=== PATIENT | female | born 1940 | race Two or more races ===

== ENCOUNTER 2016-06-19 08:37 | Inpatient (IN) | payer MEDICARE, BC ==
[2016-06-19 09:17] VITALS: BP 155/71
[2016-06-19] MEDS ORDERED: Magnesium Hydroxide (MOM) 30 mL UDC PO PRN (11:28)
[2016-06-19] MEDS ORDERED: Maalox 30 mL Cup PO PRN (11:28)
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
[2016-06-19] MEDS ORDERED: CEFDINIR 300 MG PO SCH (21:00)
[2016-06-20] MEDS ORDERED: VENLAFAXINE HCL 150 MG PO SCH (09:00)
[2016-06-20] MEDS ORDERED: LIOTHYRONINE SODIUM 5 MCG PO SCH (09:00)
[2016-06-20] MEDS: LATUDA 40 MG PO SCH ×2 (09:55→10:00)
[2016-06-20] MEDS: Multivitamin Tab PO SCH ×2 (09:55→10:00)
[2016-06-20 14:59] LABS: % BASOPHILS 0.1 % (0.0-2.0); % EOSINOPHILS 0.5 % (0.0-5.0); % LYMPHOCYTES 15.6 % (20.0-50.0); % MONOCYTES 3.4 % (2.0-10.0); % NEUTROPHILS 80.4 % (40.0-80.0); HEMATOCRIT 43.8 % (35.0-45.0); HEMOGLOBIN 14.7 gm/dL (11.7-16.1); MEAN CELL VOLUME 92.3 fl (81-100); MEAN CORPUSCULAR HGB CONC 33.6 pg (28.0-36.0); MEAN PLATELET VOLUME 7.7 fl; PLATELET COUNT 215 Th/cmm (150-400); RED BLOOD COUNT 4.75 Mil/cmm (3.80-5.20); RED CELL DISTRIBUTION WIDTH 13.3 % (11.5-20.0); WHITE BLOOD COUNT 9.8 Th/cmm (4.8-10.8)
[2016-06-20 15:08] LABS: ANION GAP 14.5 (7.0-16.0); BUN - UREA NITROGEN 22 mg/dL (7-25); BUN/CREATININE RATIO 27.5; CALCIUM SERUM 9.5 mg/dL (8.6-10.3); CARBON DIOXIDE 22.5 mEq/L (21.0-31.0); CHLORIDE 107 mEq/L (98-107); CREATININE - SERUM 0.8 mg/dL (0.6-1.2); GLUCOSE 119 mg/dL (70-105); SODIUM SERUM 140 mEq/L (136-145)
--- NOTE | 2016-06-20 15:08 | History & Physical ---
HISTORY OF PRESENT ILLNESS: The patient is a 76-year-old female with long history of hypertension, hypothyroidism, dementia, psychosis, admitted to ____ under Dr. Damon's service. The patient denies any chest pain or shortness of breath. She has very poor appetite. The patient was treated for urinary tract infection. She is off antibiotic. No dysuria or hematuria. PAST MEDICAL HISTORY: Significant for hypertension, hypothyroidism, dementia and bladder dysfunction. PAST SURGICAL HISTORY: No recent surgery. ALLERGIES: None. MEDICATIONS: Follow admission reconciliation. SOCIAL HISTORY: No smoking, alcohol or drug use. FAMILY HISTORY: Noncontributory. REVIEW OF SYSTEMS: RENAL SYSTEM: No history of chronic renal disorder. CARDIOVASCULAR SYSTEM: She has history of hypertension. ENDOCRINE SYSTEM: She has history of hypothyroidism. GASTROINTESTINAL SYSTEM: No upper or lower gastrointestinal bleed. NEUROLOGICAL: She has history of psychosis and dementia. PHYSICAL EXAMINATION: GENERAL: She is awake, alert, mildly confused. VITAL SIGNS: Temperature 98.1, heart rate 74, blood pressure 139/76. HEENT: Normocephalic. Pupils reacting to light and accommodation. Sclerae clear. NECK: Supple. Negative for lymphadenopathy, JVD or bruit. CHEST: Bilaterally normal. No rhonchi or wheezing. HEART: S1, S2 normal. No murmur or gallop. ABDOMEN: Soft. Bowel sounds positive. EXTREMITIES: No edema. BACK: No tenderness. SKIN: Intact. BREASTS, PELVIC AND RECTAL: Done by primary physician ____. NEUROLOGIC: She is awake, alert, mildly confused. No focal motor or sensory deficit. ASSESSMENT: 1. Hypertension. 2. Hypothyroidism. 3. Bladder dysfunction. 4. Dementia. 5. Psychosis. PLAN: The patient admitted to the hospital under Dr. Damon's service. Medical problem to be addressed during hospitalization is psychosis. Medical problems to be addressed at discharge is hypothyroidism and hypertension. The patient is medically stable for activity. Thank you, Dr. Damon for asking me to see your patient. JOB# [id number]
--- NOTE | 2016-06-21 01:13 | Progress Notes ---
Case was discussed with staff of the patient, reviewed records. The patient apparently refused to take her medication today. She is very confused and when I talked to her she first says she would not take her medication and then she said she needs her medication. Then, she said she is waiting on her medications. I advised the staff to bring her medication to take it. She is still unable to process information, make safe plan for self-care. She is unpredictable, impulsive, and continues to have poor insight. Unable to participate in meaningful conversation and make safe plan for self-care. I will start her back on her medication. We will adjust medication as needed. We will work with the patient in group therapy, milieu therapy, and adjust medication as needed. JOB# [id number]
[2016-06-21] MEDS: LATUDA 40 MG PO SCH (09:40)
[2016-06-21] MEDS: Multivitamin Tab PO SCH (09:41)
[2016-06-21 15:11] LABS: % BASOPHILS 0.2 % (0.0-2.0); % EOSINOPHILS 0.7 % (0.0-5.0); % LYMPHOCYTES 19.1 % (20.0-50.0); % MONOCYTES 4.5 % (2.0-10.0); % NEUTROPHILS 75.5 % (40.0-80.0); HEMATOCRIT 43.4 % (35.0-45.0); HEMOGLOBIN 14.6 gm/dL (11.7-16.1); MEAN CELL VOLUME 91.5 fl (81-100); MEAN CORPUSCULAR HEMOGLOBIN 30.7 pg (27.0-31.0); MEAN CORPUSCULAR HGB CONC 33.6 pg (28.0-36.0); MEAN PLATELET VOLUME 7.8 fl; NEUTROPHILE ABSOLUTE 6.3 Th/cmm (1.8-8.0); PLATELET COUNT 219 Th/cmm (150-400); RED BLOOD COUNT 4.74 Mil/cmm (3.80-5.20); RED CELL DISTRIBUTION WIDTH 13.3 % (11.5-20.0); WHITE BLOOD COUNT 8.4 Th/cmm (4.8-10.8)
[2016-06-21 15:51] LABS: ALB/GLOB RATIO 1.5 (1.0-1.8); ALKALINE PHOSPHATASE 76 U/L (34-104); BILIRUBIN,TOTAL 0.5 mg/dL (0.3-1.0); BUN - UREA NITROGEN 27 mg/dL (7-25); CARBON DIOXIDE 24.9 mEq/L (21.0-31.0); CHLORIDE 107 mEq/L (98-107); GLUCOSE 133 mg/dL (70-105); POTASSIUM SERUM 3.9 mEq/L (3.5-5.1); SGOT 13 U/L (13-39); SGPT/ALT 12 U/L (7-52); SODIUM SERUM 141 mEq/L (136-145)
--- NOTE | 2016-06-22 01:52 | Progress Notes ---
Case was discussed with staff of the patient, reviewed records. I left her message she was not available; however, the staff reported that she called me because she wanted the mother on long-acting injection, so at this point, the patient has been agreeable to taking her medication with no side effects; however, she is still confused, demented, easily agitated, and irritable. She refused her medication the day before yesterday and so far, no side effects with the medication, no sedation, and no nausea with no extrapyramidal symptoms. We will try to consider an injectable to the patient and we will continue to work with the patient in group therapy, milieu therapy, and adjust medication as needed. JOB# [id number]
[2016-06-22] MEDS: Multivitamin Tab PO SCH (08:50)
[2016-06-22] MEDS: LATUDA 40 MG PO SCH (08:53)
[2016-06-22] MEDS: LIOTHYRONINE 5 MCG PO SCH ×2 (10:41→16:12)
[2016-06-22] MEDS: Magnesium Hydroxide (MOM) 30 mL UDC PO PRN (17:19)
--- NOTE | 2016-06-23 01:25 | Progress Notes ---
Case was discussed with staff of the patient. The patient apparently refused her medications yesterday, though in the morning when I talked to her yesterday, she agreed to take her medication, she ended up taking them, but in the evening, she refused. When I talked to with the medication nurse today, she said she did take her medication and she is agreeable to taking her medication. She reports she has no reason to not take her medication. Her family wants her on an injectable; however, she is on an antidepressant that you cannot adjust injection. The mood stabilizer cannot be given as an injection. The only medication that needs to be communicating without an injection is lurasidone, the antipsychotic ____ but that needs to be changed because there is no lurasidone available as an injection, so I will be discussing this with her daughter who has power of commonwealth attorney first. I did leave her message yesterday and then we will make changes accordingly and see if she was tried on it before because her daughter is very picky in general about what medication her mother takes, my experience with her in the past. I want her input before I change the medication. We will continue to work with the patient in group therapy, milieu therapy, and adjust the medication as needed. JOB# [id number]
[2016-06-23] MEDS: Multivitamin Tab PO SCH (08:38)
[2016-06-23] MEDS: LATUDA 40 MG PO SCH (08:39)
[2016-06-23] MEDS: LIOTHYRONINE 5 MCG PO SCH ×2 (08:40→17:11)
[2016-06-23 13:39] LABS: URINE BILIRUBIN NEGATIVE (NEGATIVE); URINE BLOOD NEGATIVE (NEGATIVE); URINE COLOR YELLOW; URINE GLUCOSE (UA) NEGATIVE (NEGATIVE); URINE KETONE NEGATIVE (NEGATIVE); URINE PH 5.5; URINE PROTEIN NEGATIVE (NEGATIVE); URINE UROBILINOGEN 0.2 E.U./dL (0.2 - 1.0)
[2016-06-23 13:40] LABS: URINE AMORPHOUS SEDIMENT FEW URATES (NONE SEEN); URINE BACTERIA FEW /hpf (NONE SEEN); URINE CALCIUM OXALATE CRYSTALS FEW /hpf; URINE EPITHELIAL CELLS FEW /lpf (FEW); URINE RBC 0-2 /hpf (0-5)
--- NOTE | 2016-06-24 01:04 | Progress Notes ---
Case discussed with staff of the patient, reviewed records. The patient has been compliant with the medication. She continues to be confused, continues to be unpredictable and impulsive, continues to need redirection, continues to need help with her ADLs. She is incontinent. She uses a diaper, but she is taking her medication at this point. I will see if we need to send her to a rehab facility prior to her going home and so far, no side effects with the medication, no sedation, no nausea. We will continue to work with the patient in group therapy, milieu therapy, adjust the medication as needed. I have tried to call the daughter yesterday and today, left her a message to call me. JOB# [id number]
[2016-06-24] MEDS: LATUDA 40 MG PO SCH (09:25)
[2016-06-24] MEDS: Multivitamin Tab PO SCH (09:25)
[2016-06-24] MEDS: LIOTHYRONINE 5 MCG PO SCH ×2 (09:30→17:58)
--- NOTE | 2016-06-25 07:21 | Progress Notes ---
Case discussed with staff of the patient, reviewed records. The patient seems to be progressively showing some progress. She is taking her medication without prompt. She is easier to redirect, but she is confused, unable to tell me the date, where she is, she forgot that she saw me or ever saw me. She continues to have poor insight. I will be increasing her Latuda to 40 mg a day and so far no side effects, no sedation, no nausea, no extrapyramidal symptoms. As per the covering psychiatrist, medication may need to be adjusted and watch for side effects. 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 Dr. Falk is aware of it. Her CBC is within normal range with low lymphocytes. Chemistry panel showed high BUN, high blood sugar and her TSH is high and Dr. Falk was made aware of it and chemistry panel with high blood sugar. I will be increasing the Latuda to 40 mg a day and we will continue to work with patient in group therapy, milieu therapy, adjust the medication as needed. JOB# [id number]
[2016-06-25] MEDS: LATUDA 40 MG PO SCH (08:46)
[2016-06-25] MEDS: Multivitamin Tab PO SCH (08:46)
[2016-06-25] MEDS: LIOTHYRONINE 5 MCG PO SCH ×2 (08:46→16:50)
--- NOTE | 2016-06-26 08:39 | Progress Notes ---
Dr. Fiore covering Dr. Damon. SUBJECTIVE: The patient was seen and evaluated. The patient's chart reviewed. The patient is a 76-year-old female who was brought in here by another hospital in [facility]. She got into an argument with her caregiver, pulling hair, stated she was afraid to . She was paranoid, feeling that her caregiver wants to harm her by giving her different medications. She stated that she was still having thoughts of harming her caregiver, but unable to state how. Nursing staff reported that the patient being isolative, withdrawing, easily irritable and agitated. On [id number]-[id number] evaluation, the patient is easily isolative, withdrawn, needing a lot of redirection. She reports a lot of anxiety and instability. She denies any side effects of the medication. MENTAL STATUS EXAMINATION: Withdrawn, isolated, poor insight, poor judgment, poor impulse control. Current medications include lorazepam 0.5 mg twice a day, 40 mg, memantine 10 mg by mouth twice a day, venlafaxine 150 mg by mouth daily, and Lamictal 25 mg by mouth twice a day. ASSESSMENT AND PLAN: The patient is a 75-year-old female with history of schizoaffective comorbid dementia with behavioral disturbances and delusions, who is tolerating recent medication adjustments without any side effects. We will continue with primary treatment plan and goals and current medications, assist to adjusting and reaching a steady state without any side effects. Due to the patient's still disorganized thought process, she is unable to formulate a safe plan for after-discharge environment. [facility]# [id number]
[2016-06-26] MEDS: LIOTHYRONINE 5 MCG PO SCH ×2 (08:42→16:26)
[2016-06-26] MEDS: LATUDA 40 MG PO SCH (08:43)
[2016-06-26] MEDS: Multivitamin Tab PO SCH (08:44)
[2016-06-27] MEDS: LIOTHYRONINE 5 MCG PO SCH ×2 (10:16→16:51)
[2016-06-27] MEDS: Multivitamin Tab PO SCH (10:18)
[2016-06-27] MEDS: LATUDA 40 MG PO SCH (10:19)
--- NOTE | 2016-06-27 18:43 | Progress Notes ---
SUBJECTIVE: The patient seen, chart reviewed, discussed with staff. The patient is currently in the hospital on a hold for grave disability brought over from [facility]. The patient is a poor historian, not really able to tell me why she is in the hospital at this time. History of dementia. The patient under the care of Dr. Damon. Dr. Fiore has been seeing this patient over the past few days, noted to be paranoid, feeling that caregiver wanted to harm her. The patient is essentially refusing interview with me, not really talking much. Medications reviewed. Labs were reviewed, still with reports of anxiety, isolation, withdrawn, still needing a lot of redirection prompting for ADLs and appetite and eating. No overt side effects of medications were noted and medications were reviewed. ASSESSMENT: The patient currently in the hospital, argumentative with caregiver, pulling the hair of the caregiver, paranoid, thought that the delivery and installation subcontractor wanted to harm her. Still with symptoms of isolation, not really speaking with me this morning, still upset. PLAN: Medications reviewed. Continue to monitor for side effects. JOB# [id number]
[2016-06-28] MEDS: LIOTHYRONINE 5 MCG PO SCH ×2 (08:30→17:30)
[2016-06-28] MEDS: Multivitamin Tab PO SCH (08:31)
[2016-06-28] MEDS: LATUDA 40 MG PO SCH (08:36)
--- NOTE | 2016-06-28 11:14 | Progress Notes ---
Covering for Dr. Damon. SUBJECTIVE: The patient was seen and evaluated. The patient's chart reviewed. Nursing staff reported that the patient has been isolative, withdrawn in her room, minimally interactive. On [id number] evaluation, the patient is staying in room, melancholic stage. She feels a lot of anxiety, feeling overwhelmed. She denies any side effects to the medications. MENTAL STATUS EXAMINATION: Melancholic, depressed, very distraught, anxious, endorsing suicidal. Poor insight and poor judgment. Poor impulse control. ASSESSMENT AND PLAN: The patient is a 76-year-old female with major depressive disorder and psychotic features with underlying neurocognitive impairment. We will continue with the current medication regimen, which includes Latuda, Namenda, Effexor, and Lamictal. JOB# [id number]
--- NOTE | 2016-06-29 05:22 | Progress Notes ---
Case discussed with staff of patient. Reviewed records. The patient has been taking her medication and continues to isolate herself agitated at times. She continues ____ direction. She continues to be unpredictable, impulsive. She continues to have poor insight. She also is demented and confused. No side effects with the medication, no sedation, no nausea, no extrapyramidal symptoms. I will continue to work the patient in group therapy, milieu therapy, adjust the medication as needed. JOB# [id number]
[2016-06-29] MEDS: LIOTHYRONINE 5 MCG PO SCH ×2 (09:59→17:05)
[2016-06-29] MEDS: LATUDA 40 MG PO SCH (09:59)
[2016-06-29] MEDS: Multivitamin Tab PO SCH (10:00)
--- NOTE | 2016-06-29 19:58 | Progress Notes ---
The case was discussed with staff of the patient, reviewed records. The patient is reportedly staying in bed all day. She continues to isolate herself. Continues to have poor insight. Continues to be unable to make safe plan for self-care. She is demented and confused. Looking disheveled. She is sleeping well and eating well. She is compliant with the medication with no side effects, no sedation, and no nausea. Discussed the care with her daughter. She does not want to go to any rehab facility now. She said she had a bad experience and so far, I did increase her Latuda to 40 mg a day and no side effects with the medication, no extrapyramidal symptoms. We will continue to work with the patient in group therapy, milieu therapy, and adjust medication as needed. JOB# [id number]
[2016-06-30] MEDS: LIOTHYRONINE 5 MCG PO SCH ×3 (10:00→17:10)
[2016-06-30] MEDS: LATUDA 40 MG PO SCH ×2 (10:00→10:18)
[2016-06-30] MEDS: Multivitamin Tab PO SCH ×2 (10:01→10:20)
[2016-06-30] MEDS ORDERED: LATUDA 40 MG PO SCH (13:12)
--- NOTE | 2016-07-01 05:27 | Progress Notes ---
Case was discussed with staff of the patient. The patient today admitted to me that when she first came she was hearing voices. She reported that the voices are fading away. They are not as prominent. She stays in bed most of the time, but she is able to carry on a conversation better. She was not doing that before. She has been compliant with the medication with no side effects, no sedation, and no nausea. I will be increasing the Latuda dose to 60 mg a day to help make sure that the patient does not become psychotic again. When she came, she was on a very small dose of Latuda 20 mg, was not taking her medication, and her daughter wants her to go back home and not to a facility, and so far, no side effects with the medication, no sedation, no nausea, and no extrapyramidal symptoms. We will continue to work with the patient in group therapy, milieu therapy, and adjust the medication as needed. JOB# [id number]
[2016-07-01] MEDS: LIOTHYRONINE 5 MCG PO SCH ×2 (09:47→17:11)
[2016-07-01] MEDS: Multivitamin Tab PO SCH (09:49)
[2016-07-01] MEDS: Magnesium Hydroxide (MOM) 30 mL UDC PO PRN (13:03)
--- NOTE | 2016-07-02 02:21 | Progress Notes ---
Case was discussed with staff of the patient, reviewed records. The patient reported that she has been very sedated on a higher dose of Latuda since yesterday. She feels she is going to fall. She continues to be depressed, isolating herself. Continues to be unpredictable and impulsive. So for the time being, I will go down on Latuda to 60 mg a day and then may be increasing it later and no other side effects besides sedation, no extrapyramidal symptoms, and we will continue to work with the patient in group therapy, milieu therapy, and adjust the medication as needed. JOB# [id number]
[2016-07-02] MEDS: LATUDA 40 MG PO SCH (08:46)
[2016-07-02] MEDS: Multivitamin Tab PO SCH (08:46)
[2016-07-02] MEDS: LIOTHYRONINE 5 MCG PO SCH ×2 (08:47→16:15)
--- NOTE | 2016-07-02 20:46 | Progress Notes ---
SUBJECTIVE: The patient seen, chart reviewed, discussed with staff. The patient continues to be unpredictable, impulsive, labile, depressed, isolative and withdrawn. Complaints that it "too noisy," unclear where she is going to go upon discharge. The patient currently is in the hospital. She was refusing medications, refusing to participate in care. Staff could not care for her. The patient is with supportive family, history of dementia, eating with prompting and sleeping fairly well. ASSESSMENT: The patient remains symptomatic, still depressed, isolative, withdrawn, unpredictable and labile. PLAN: We will continue to monitor and monitor for any undue side effects. Due to the severity of the patient's symptoms, she is not safe for discharge. [facility]# [id number]
[2016-07-03] MEDS: Multivitamin Tab PO SCH (08:24)
[2016-07-03] MEDS: LATUDA 40 MG PO SCH (08:24)
[2016-07-03] MEDS: LIOTHYRONINE 5 MCG PO SCH ×2 (08:32→17:05)
[2016-07-03] MEDS: Magnesium Hydroxide (MOM) 30 mL UDC PO PRN (09:20)
--- NOTE | 2016-07-03 19:08 | Progress Notes ---
SUBJECTIVE: The patient is seen, chart reviewed, discussed with staff. The patient is currently in the hospital, refusing medications, refusing to participate in care and the staff at her previous facility could not care for her. She continues to be impulsive, still labile, isolative, withdrawn, sleeping on exam. She is arousable, but is refusing to speak with me. The patient is with history of dementia, eating with prompting. Sleeping is fairly well. No medication side effects noted. ASSESSMENT: The patient remains symptomatic, depressed, withdrawn, isolative, still labile at times. PLAN: Continue to monitor. Continue to titrate medications. Due to the persistence of the patient's behaviors, she is not safe for a lower level of care. The patient is to follow up with Dr. Damon in the morning. JOB# [id number]
[2016-07-04] MEDS: LATUDA 40 MG PO SCH (09:46)
[2016-07-04] MEDS: Multivitamin Tab PO SCH (09:47)
[2016-07-04] MEDS: LIOTHYRONINE 5 MCG PO SCH ×2 (12:14→16:40)
[2016-07-04] MEDS: Magnesium Hydroxide (MOM) 30 mL UDC PO PRN (21:27)
--- NOTE | 2016-07-05 03:31 | Progress Notes ---
Case was discussed with staff of the patient, reviewed records. The patient continues to isolate herself in bed. She has not been able to take a shower yet and the staff is trying to prompt her to take a shower to improve her status. She is still unable to make safe plan for self-care, isolating herself. She gets sedated on a higher dose of Latuda, so I will hold on doing that giving more time to work and so far, no side effects with the medication, no sedation, no nausea, and no extrapyramidal symptoms. We will continue to work with the patient in group therapy, milieu therapy, and adjust the medication as needed. JOB# [id number]
[2016-07-05] MEDS: Multivitamin Tab PO SCH (08:54)
[2016-07-05] MEDS: LATUDA 40 MG PO SCH (08:54)
[2016-07-05] MEDS: LIOTHYRONINE 5 MCG PO SCH ×2 (08:55→18:13)
--- NOTE | 2016-07-05 23:29 | Progress Notes ---
The patient continues to be depressed, isolating herself, continues to hear voices, unable to make safe plan for her self-care. She continues to have poor hygiene. The staff have to press her many times to have her wash herself. She is unpredictable, impulsive, internally preoccupied, needing redirection. Continues to have poor insight, depressed. I will be increasing her venlafaxine to 225 to help with her depression and so far no side effects with the medication, no sedation, no nausea and no extrapyramidal symptoms. We will continue to work with the patient in group therapy, milieu therapy, adjust the medication as needed. JOB# [id number]
[2016-07-06] MEDS: Multivitamin Tab PO SCH (08:20)
[2016-07-06] MEDS: LATUDA 40 MG PO SCH (08:20)
[2016-07-06] MEDS: LIOTHYRONINE 5 MCG PO SCH ×2 (08:21→17:10)
--- NOTE | 2016-07-07 00:53 | Progress Notes ---
Case was discussed with staff of the patient, reviewed records. The patient continues to isolate herself, stays in bed. Continues to be unpredictable, impulsive, needing redirection, responding at times to internal stimuli. I did increase her Effexor dose yesterday with a hope that this will give her more energy and motivation and it is too early to make further adjustment, to see how she can respond to the current adjustment of her medication that was done yesterday, and we will continue to work with the group therapy, milieu therapy, and adjust medication as needed. JOB# [id number]
[2016-07-07] MEDS: LATUDA 40 MG PO SCH (09:14)
[2016-07-07] MEDS: Multivitamin Tab PO SCH (09:15)
[2016-07-07] MEDS: LIOTHYRONINE 5 MCG PO SCH ×2 (09:16→16:28)
--- NOTE | 2016-07-08 02:32 | Progress Notes ---
Case was discussed with staff of the patient, reviewed records. The patient continues to isolate herself, stays in bed. Continues to have poor insight. Unable to make safe plan for self-care. Continues to be unpredictable and impulsive, needing redirection. She is compliant with the medication with no side effects. I asked the patient to try to go to group room. She said she tried, but she could not because she feels she has nothing to do. I explained to her that there are a lot of people there that she can go and be with the crowd. I will be increasing her Latuda to 60 mg a day and so far no side effects, no sedation, no nausea, and no extrapyramidal symptoms. We will continue to work with the patient in group therapy, milieu therapy, and adjust medication as needed. JOB# [id number]
[2016-07-08] MEDS: LIOTHYRONINE 5 MCG PO SCH ×2 (09:10→16:43)
[2016-07-08] MEDS: LATUDA 40 MG PO SCH (09:10)
[2016-07-08] MEDS: Multivitamin Tab PO SCH (09:11)
--- NOTE | 2016-07-09 02:53 | Progress Notes ---
Case was discussed with staff of the patient. The patient continues to isolate herself, stays in bed, depressed. Continues to be unpredictable. Continues to be internally preoccupied. I did increase her Latuda dose yesterday to 60 mg with no side effects, no sedation, no nausea, and no extrapyramidal symptoms. She continues to report feeling depressed, overwhelmed, and no side effects with the medication, no sedation, no nausea, and no extrapyramidal symptoms. We will continue to work with the patient in group therapy, milieu therapy, and adjust the medication as needed. JOB# [id number]
[2016-07-09] MEDS: Multivitamin Tab PO SCH (10:16)
[2016-07-09] MEDS: LATUDA 40 MG PO SCH (10:17)
[2016-07-09] MEDS: LIOTHYRONINE 5 MCG PO SCH ×2 (10:19→18:19)
--- NOTE | 2016-07-10 01:37 | Progress Notes ---
Dr. Hitchcock is covering for Dr. Damon. SUBJECTIVE: Chart was reviewed and the patient interviewed. Also, discussed the patient's condition with the staff and reviewed records and labs. The patient is still isolative and is still withdrawn. The patient also is still guarded and she wants to be left alone and stays by herself in her room most of the time. During my interview, the patient said that she is feeling tired and she has not been able to sleep good at night. The patient also said that "something is wrong." The patient is hoping that her daughter will come to visit her today. Otherwise, the patient is compliant with taking her medications with no side effects of medications. ASSESSMENT: The patient is still depressed and high risk for suicide. TREATMENT PLAN: We will continue to monitor her behavior and her condition closely. Also, continue adjusting psychotropic medications and continue supportive therapy for the patient. [facility]# [id number]
[2016-07-10] MEDS: LATUDA 40 MG PO SCH (08:16)
[2016-07-10] MEDS: Multivitamin Tab PO SCH (08:17)
[2016-07-10] MEDS: LIOTHYRONINE 5 MCG PO SCH ×2 (08:18→16:17)
[2016-07-10] MEDS: Diclofenac 75 mg Tab PO SCH ×2 (08:39→16:16)
--- NOTE | 2016-07-11 04:23 | Progress Notes ---
SUBJECTIVE: Chart reviewed and the patient interviewed. Also discussed the patient's condition with the staff and reviewed records and labs. The patient is still isolative and withdrawn and she is still severely depressed. The patient also is interacting minimally with others. She is still complaining of lack of energy and lack of motivation and continued to say, "I don't know what's wrong with me." The patient also is still working on her interpersonal relationships. The patient also still has periods of hopeless feelings. Otherwise, the patient is compliant with taking her medications with no side effects of medications. ASSESSMENT: The patient is still severely depressed. TREATMENT PLAN: Continue monitoring her behavior and condition closely. Also, continue supportive therapy and working on her ineffective coping. [facility]# [id number]
[2016-07-11] MEDS: Diclofenac 75 mg Tab PO SCH ×2 (08:21→16:30)
[2016-07-11] MEDS: LATUDA 40 MG PO SCH (08:22)
[2016-07-11] MEDS: Multivitamin Tab PO SCH (08:23)
[2016-07-11] MEDS: LIOTHYRONINE 5 MCG PO SCH ×2 (08:23→16:31)
--- NOTE | 2016-07-12 00:50 | Progress Notes ---
Case was discussed with staff of the patient, reviewed records. The patient is reported by staff to have shown some progress that she is going out to the group room and participating; however, when I talked to the patient, she told me that she is still hearing voices calling her . The staff report that she really maybe like it in the hospital because her behavior is different from what she is reporting, however. I will be increasing the Latuda to 80 mg in the evening and so far she is compliant with the medication with no side effects, no sedation, no nausea, and no extrapyramidal symptoms. She denies, however, any intent to harm himself or anybody and we will continue to work with the patient in group therapy, milieu therapy, and adjust the medication as needed. JOB# [id number]
[2016-07-12] MEDS: Diclofenac 75 mg Tab PO SCH ×2 (08:27→16:18)
[2016-07-12] MEDS: LIOTHYRONINE 5 MCG PO SCH ×2 (08:30→16:20)
[2016-07-12] MEDS: Multivitamin Tab PO SCH (08:30)
[2016-07-12] MEDS: LATUDA 40 MG PO SCH (08:43)
--- NOTE | 2016-07-13 00:30 | Progress Notes ---
Case was discussed with staff of the patient, reviewed records. The patient is reported by the staff to still be anxious, responding to internal stimuli. Continues to be easily overwhelmed. Continues to have poor insight. Continues to be not ready for discharge because of her symptoms, her anxiety. She is not sleeping well. She is still confused, unable to tell me the date. She knows she is in the hospital and I did increase the Latuda yesterday to 80 mg in the evening and surely to make further adjustments get the medication time to work. I will be increasing her Ambien to 10 mg at bedtime and we will continue to work with the patient in group therapy, milieu therapy, and adjust the medication as needed. JOB# [id number]
[2016-07-13] MEDS: Multivitamin Tab PO SCH (08:29)
[2016-07-13] MEDS: LATUDA 40 MG PO SCH (08:34)
[2016-07-13] MEDS: LIOTHYRONINE 5 MCG PO SCH ×2 (08:34→16:45)
[2016-07-13] MEDS: Diclofenac 75 mg Tab PO SCH ×2 (08:36→16:47)
--- NOTE | 2016-07-13 19:47 | Discharge Summary ---
IDENTIFYING INFORMATION: The patient is a 76-year-old female. HISTORY OF PRESENT ILLNESS: The patient came on a hold for grave disability. She was refusing medications, hard to redirect, refusing to participate in care. She was sent from [facility] because of the above reasons. She is a poor historian. She is well known case to me as I treated her before. The patient has a long history of psychiatric illness with multiple prior psychiatric hospitalizations. She was also demented. COURSE IN THE HOSPITAL: The patient was started back on her medication Lamictal 50 mg daily. The patient was continued on atenolol, Tessalon, diclofenac. She was on lurasidone 20 mg increased the dose course of stay, 80 mg a day. She is on Namenda 10 mg twice a day, multivitamin, oxybutynin. The patient also was on Effexor and I increased the dose to 225 mg over the course of the stay and Lamictal 25 mg twice a day. The patient progressively got better. She was sleeping well, eating well. She was tend to stay in her bed most of the time; however, she was not acting anyway dangerous or psychotic. She reports she sleeps better usually at home, so as she improved I talked to her daughter and the daughter does not want her to go to any rehab. She want her to go back home and she has a caregiver. The patient will follow up with her psychiatrist, primary care physician and therapist. FINAL DIAGNOSES: AXIS I: Dementia with behavior disturbances. MEDICAL DIAGNOSES: Deferred to the medical doctor. EXPECTED OUTCOME: Stable if the patient complies with the above. JOB# [id number]
== END 2016-07-13 18:00 | disposition home or self-care (01) | DRG 884 ==
LOC: GERO 08:37
PROVIDERS: ADMIT Psychiatry & Neurology Psychiatry; ATTEND Psychiatry & Neurology Psychiatry
DX: F03.91 Unspecified dementia, unspecified severity, with behavioral disturbance (principal); N31.9 Neuromuscular dysfunction of bladder, unspecified; I10 Essential (primary) hypertension; E03.9 Hypothyroidism, unspecified; F22 Delusional disorders; F29 Unspecified psychosis not due to a substance or known physiological condition
CPT/HCPCS: 36415-UA; 80048-TC; 80053-TC; 81001-TC; 84443-TC; 85025-TC; 90899; G0410; Z7610